=== PATIENT | male | born 1935 | race Hispanic/Latino ===

== ENCOUNTER 2021-10-09 11:47 | Inpatient (IN) | payer MEDICARE, OTHER ==
[~2021-10-09] VITALS: Ht 167.6 cm; Wt 81.6 kg
[2021-10-09] MEDS ORDERED: Morphine 2mg Syringe 2 MG/ML SYR IV PRN (13:15)
[2021-10-09] MEDS ORDERED: ONDANSETRON HCL INJ 2MG/ML 2ML 2 MG/ML VIAL IV PRN (13:15)
[2021-10-09] MEDS ORDERED: ONDANSETRON HCL INJ 2MG/ML 2ML 2 MG/ML VIAL IV STA (13:28)
[2021-10-09] MEDS ORDERED: Morphine 2mg Syringe 2 MG/ML SYR IV ONE (13:30)
[2021-10-09] MEDS ORDERED: Morphine 4mg Syringe 4 MG/ML INJ ONE (13:42)
[2021-10-09 15:33] VITALS: BP 170/94
[2021-10-09 15:40] VITALS: BP 170/94
[2021-10-09] MEDS ORDERED: LISINOPRIL10 MG PO (16:58)
[2021-10-09] MEDS ORDERED: VITAMIN B122500 MCG PO (16:58)
[2021-10-09] MEDS ORDERED: VITAMIN D3 COM1 EACH PO (16:58)
[2021-10-09 19:41] LABS: BASOPHILS % 0.3 % (0.0-1.0); EOSINOPHILS # (AUTO) 0.1 (0.0-0.4); HEMATOCRIT 41.6 % (38.2-49.6); HEMOGLOBIN 13.7 g/dL (14.0-18.0); LYMPHOCYTES % 11.5 % (18.0-39.1); MEAN CORPUSCULAR HEMOGLOBIN 28.7 pg (28-32); MEAN CORPUSCULAR HGB CONC 32.9 g/dL (31-35); MONOCYTES # (AUTO) 0.8 (0.2-0.8); MONOCYTES % 8.8 % (4.4-11.3); NEUTROPHILS # (AUTO) 6.8 (2.1-6.9); NEUTROPHILS % 78.1 % (38.7-80.0); PLATELET COUNT 163 x10e3/uL (140-360); RED BLOOD COUNT 4.78 x10e6/uL (4.3-5.7); RED CELL DISTRIBUTION WIDTH 13.2 % (11.7-14.4)
[2021-10-09 19:53] LABS: INR 1.07; PROTHROMBIN TIME 14.7 seconds (11.9-14.5)
[2021-10-09 20:00] VITALS: BP 188/77
[2021-10-09] MEDS ORDERED: METOPROLOL TARTRATE 25 MG TAB PO PRN (21:45)
[2021-10-09] MEDS ORDERED: METOPROLOL TARTRATE 25 MG TAB PO ONE (22:00)
[2021-10-10] VITALS (10 sets, daily range): BP systolic 149–201; BP diastolic 70–93
[2021-10-10] MEDS: SODIUM CHLORIDE 0.9% 1000ML 1,000 ML IV SCH ×2 (00:07→10:00)
[2021-10-10] MEDS ORDERED: METOPROLOL TARTRATE INJ 1 MG/ML VIAL IV PRN (00:45)
[2021-10-10] MEDS ORDERED: LABETALOL HCL 5 MG/ML 20ML VIAL IV ONE (00:45)
[2021-10-10] MEDS ORDERED: METOPROLOL TARTRATE INJ 1 MG/ML VIAL IV ONE (00:45)
[2021-10-10] MEDS ORDERED: LABETALOL HCL 5 MG/ML 20ML VIAL IV PRN (00:45)
[2021-10-10] MEDS ORDERED: METOPROLOL TARTRATE 50 MG TAB PO SCH (07:45)
[2021-10-10 08:28] LABS: CHOL/HDL RATIO 4.6 (3.9-4.7)
[2021-10-10] MEDS: MV MN PO SCH (09:00)
[2021-10-10] MEDS: IRON PO SCH (09:00)
[2021-10-10] MEDS: FOLIC ACID PO SCH (09:00)
[2021-10-10] MEDS ORDERED: CYANOCOBALAMIN PO SCH (09:00)
[2021-10-10] MEDS: OYST-CAL-D 500MG TABLET PO SCH ×3 (09:00→21:13)
[2021-10-10] MEDS: LISINOPRIL 10 MG TAB PO SCH (09:00)
[2021-10-10] MEDS: HERB PO SCH (09:00)
[2021-10-10] MEDS ORDERED: ONDANSETRON HCL 4 MG ORAL DISINTEGRATING TAB PO PRN (09:30)
[2021-10-10] MEDS: HYDRALAZINE HCL 25 MG TAB PO SCH ×3 (10:00→21:13)
[2021-10-10] MEDS ORDERED: ATROPINE SULFATE 0.1 MG/ML 10ML SYR IV PRN (10:00)
[2021-10-10] MEDS ORDERED: CYANOCOBALAMIN 1,000 MCG TAB PO SCH (12:00)
[2021-10-10 14:01] LABS: CLARITY,URINE CLEAR (CLEAR); COLOR,URINE YELLOW (YELLOW); KETONES,URINE NEGATIVE (NEGATIVE); LEUKOCYTE ESTERASE ,URINE NEGATIVE (NEGATIVE); NITRITE,URINE NEGATIVE (NEGATIVE); PROTEIN,URINE DIPSTICK NEGATIVE (NEGATIVE); URINE UROBILINOGEN 0.2 mg/dL (0.2 - 1)
[2021-10-10 14:17] LABS: BACTERIA,URINE FEW /HPF; RBC,URINE 0-5 /HPF (0-5)
[2021-10-10] MEDS: CYANOCOBALAMIN 1,000 MCG TAB PO SCH (21:13)
[2021-10-11] VITALS (7 sets, daily range): BP systolic 133–181; BP diastolic 69–96
[2021-10-11] MEDS: SODIUM CHLORIDE 0.9% 1000ML 1,000 ML IV SCH ×5 (00:03→21:15)
[2021-10-11 05:36] LABS: BASOPHILS % 0.3 % (0.0-1.0); EOSINOPHILS # (AUTO) 0.1 (0.0-0.4); HEMATOCRIT 40.9 % (38.2-49.6); HEMOGLOBIN 13.2 g/dL (14.0-18.0); LYMPHOCYTES % 7.9 % (18.0-39.1); MEAN CORPUSCULAR HEMOGLOBIN 28.2 pg (28-32); MEAN CORPUSCULAR HGB CONC 32.3 g/dL (31-35); MEAN CORPUSCULAR VOLUME 87.4 fL (81-99); MONOCYTES # (AUTO) 0.9 (0.2-0.8); MONOCYTES % 7.3 % (4.4-11.3); NEUTROPHILS # (AUTO) 10.7 (2.1-6.9); PLATELET COUNT 158 x10e3/uL (140-360); RED BLOOD COUNT 4.68 x10e6/uL (4.3-5.7); RED CELL DISTRIBUTION WIDTH 13.3 % (11.7-14.4)
[2021-10-11] MEDS: FOLIC ACID PO SCH (09:00)
[2021-10-11] MEDS: HYDRALAZINE HCL 25 MG TAB PO SCH ×3 (09:00→21:15)
[2021-10-11] MEDS: HERB PO SCH (09:00)
[2021-10-11] MEDS: LISINOPRIL 10 MG TAB PO SCH (09:00)
[2021-10-11] MEDS: MV MN PO SCH (09:00)
[2021-10-11] MEDS: OYST-CAL-D 500MG TABLET PO SCH ×3 (09:00→21:15)
[2021-10-11] MEDS: IRON PO SCH (09:00)
[2021-10-11] MEDS ORDERED: SODIUM CHLORIDE 0.9% 50ML 50 ML ONE (09:02)
[2021-10-11] MEDS ORDERED: HYDROMORPHONE 0.2MG/ML-SOD CHL 30ML PCA SYRINGE IV PRN (10:30)
[2021-10-11] MEDS ORDERED: ACETAMINOPHEN 1000 MG/100 ML IV PRN (10:30)
[2021-10-11] MEDS ORDERED: NALOXONE HCL INJ 0.4 MG/ML AMP IV PRN (10:30)
[2021-10-11] MEDS ORDERED: ONDANSETRON HCL INJ 2MG/ML 2ML 2 MG/ML VIAL IV PRN (10:30)
[2021-10-11] MEDS ORDERED: HYDROMORPHONE 0.2MG/ML-SOD CHL 30ML PCA SYRINGE IV ONE (10:50)
[2021-10-11 12:24] LABS: INR 1.18; PROTHROMBIN TIME 15.8 seconds (11.9-14.5)
[2021-10-11] MEDS ORDERED: SEVOFLURANE INHAL SOLN 250 ML PEN BTL ONE (12:42)
[2021-10-11] MEDS ORDERED: ACETAMINOPHEN 1000 MG/100 ML IV ONE (12:42)
[2021-10-11] MEDS ORDERED: LIDOCAINE HCL 2% LOCAL INJ 5 ML SDV VIAL INJ ONE (12:42)
[2021-10-11] MEDS ORDERED: ONDANSETRON HCL INJ 2MG/ML 2ML 2 MG/ML VIAL ONE (12:42)
[2021-10-11] MEDS ORDERED: PROPOFOL IV EMULSION 10 MG/ML 20 ML VIAL ONE (12:42)
[2021-10-11] MEDS ORDERED: POVIDONE IODINE 0.05% 0.05 % ML PO ONE (12:42)
[2021-10-11] MEDS ORDERED: FENTANYL CITRATE/PF 100MCG/2 ML INJ ONE (12:51)
[2021-10-11] MEDS ORDERED: Morphine 10mg syringe 10 MG/ML INJ ONE (12:51)
[2021-10-11] MEDS: Cefazolin 1 GM in SODIUM CHLORIDE 0.9% 50ML 50 ML IV SCH (16:35)
[2021-10-11] MEDS: CYANOCOBALAMIN 1,000 MCG TAB PO SCH (21:15)
[2021-10-11] MEDS ORDERED: DEXTROSE 50% SYRINGE 50 ML IV PRN (21:45)
[2021-10-11] MEDS: INSULIN LISPRO 100 UNIT/1 ML 3ML VIAL SQ SCH (22:02)
[2021-10-12] MEDS: Cefazolin 1 GM in SODIUM CHLORIDE 0.9% 50ML 50 ML IV SCH ×2 (00:37→08:51)
[2021-10-12 04:00] VITALS: BP 130/72
[2021-10-12] MEDS: SODIUM CHLORIDE 0.9% 1000ML 1,000 ML IV SCH ×4 (05:01→16:30)
[2021-10-12 05:16] LABS: HEMATOCRIT 37.3 % (38.2-49.6); HEMOGLOBIN 12.1 g/dL (14.0-18.0)
[2021-10-12] MEDS ORDERED: HYDRALAZINE HCL25 MG PO (07:01)
[2021-10-12] MEDS ORDERED: XARELTO10 MG PO (07:01)
[2021-10-12] MEDS ORDERED: ACETAMINOPHEN650 M1 PO (07:02)
[2021-10-12 08:00] VITALS: BP 145/84
[2021-10-12] MEDS: RIVAROXABAN 10 MG TABLET PO SCH ×2 (08:49→16:01)
[2021-10-12] MEDS: HYDRALAZINE HCL 25 MG TAB PO SCH ×2 (08:52→15:39)
[2021-10-12] MEDS: FOLIC ACID PO SCH (08:53)
[2021-10-12] MEDS: LISINOPRIL 10 MG TAB PO SCH (08:53)
[2021-10-12] MEDS: OYST-CAL-D 500MG TABLET PO SCH ×2 (08:53→15:40)
[2021-10-12] MEDS: MV MN PO SCH (08:53)
[2021-10-12] MEDS: IRON PO SCH (08:53)
[2021-10-12] MEDS: HERB PO SCH (08:53)
[2021-10-12] MEDS ORDERED: ACETAMINOPHEN/CODEINE 300MG - 30MG TAB PO PRN (09:15)
[2021-10-12] MEDS: INSULIN LISPRO 100 UNIT/1 ML 3ML VIAL SQ SCH ×3 (09:26→16:44)
[2021-10-12 12:00] VITALS: BP 128/69
[2021-10-12 15:00] VITALS: BP_SYST 128; BP_SYST 141; BP_DIAS 69; BP_DIAS 70
== END 2021-10-12 18:21 | DRG 481 ==
LOC: FSED 12:08 → ERHOLD 13:21 → MED/SURG 15:33
PROVIDERS: ADMIT Internal Medicine; ATTEND Internal Medicine
PROC: 0QS634Z Reposition Right Upper Femur with Internal Fixation Device, Percutaneous Approach (ICD-10-PCS; principal; 2021-10-11 08:00)
DX: S72.141A Displaced intertrochanteric fracture of right femur, initial encounter for closed fracture (principal); I16.1 Hypertensive emergency; I10 Essential (primary) hypertension; Z20.822 Contact with and (suspected) exposure to COVID-19; I44.1 Atrioventricular block, second degree; W01.0XXA Fall on same level from slipping, tripping and stumbling without subsequent striking against object, initial encounter; Y93.9 Activity, unspecified; E78.5 Hyperlipidemia, unspecified; E11.65 Type 2 diabetes mellitus with hyperglycemia; R94.31 Abnormal electrocardiogram [ECG] [EKG]; Z79.4 Long term (current) use of insulin
CPT/HCPCS: 36415; 71045; 72170; 76000; 80053; 80061; 81001; 82948; 83036; 85014; 85018; 85025; 85610; 86850; 86900; 93005; 93306; 94799; 97139; 99283; C1713; J0690; J2001; J2270; J2405; J3010; J7030; J7050; U0002

== ENCOUNTER 2022-01-27 20:41 | Inpatient (IN) | payer MEDICARE ==
[~2022-01-27] VITALS: Ht 167.6 cm; Wt 81.6 kg
[~2022-01-27 20:41] MED LIST: ACETAMINOPHEN650 M1 PO; HYDRALAZINE HCL25 MG PO; LISINOPRIL10 MG PO; VITAMIN B122500 MCG PO; VITAMIN D3 COM1 EACH PO; XARELTO10 MG PO
[2022-01-27] MEDS ORDERED: ACETAMINOPHEN 325 MG TAB PO ONE (21:00)
[2022-01-27 21:10] LABS: BASOPHILS % 0.3 % (0.0-1.0); EOSINOPHILS % 0.2 % (0.0-6.0); HEMATOCRIT 39.9 % (38.2-49.6); HEMOGLOBIN 13.1 g/dL (14.0-18.0); LYMPHOCYTES # (AUTO) 0.8 (1.0-3.2); LYMPHOCYTES % 5.2 % (18.0-39.1); MEAN CORPUSCULAR HEMOGLOBIN 29.6 pg (28-32); MEAN CORPUSCULAR HGB CONC 32.8 g/dL (31-35); MEAN CORPUSCULAR VOLUME 90.3 fL (81-99); MONOCYTES # (AUTO) 1.1 (0.2-0.8); MONOCYTES % 7.3 % (4.4-11.3); NEUTROPHILS # (AUTO) 12.8 (2.1-6.9); NEUTROPHILS % 86.4 % (38.7-80.0); PLATELET COUNT 232 x10e3/uL (140-360); RED BLOOD COUNT 4.42 x10e6/uL (4.3-5.7); RED CELL DISTRIBUTION WIDTH 13.7 % (11.7-14.4)
[2022-01-27] MEDS ORDERED: ACETAMINOPHEN 325 MG TAB ONE (21:12)
[2022-01-27 21:16] LABS: CLARITY,URINE CLOUDY (CLEAR); COLOR,URINE YELLOW (YELLOW)
[2022-01-27 21:17] LABS: KETONES,URINE NEGATIVE (NEGATIVE); LEUKOCYTE ESTERASE ,URINE SMALL (NEGATIVE); NITRITE,URINE POSITIVE (NEGATIVE); PROTEIN,URINE DIPSTICK 2+ (NEGATIVE)
[2022-01-27 21:21] LABS: ALBUMIN 3.2 g/dL (3.5-5.0); ALBUMIN/GLOBULIN RATIO 0.7 (0.8-2.0); CALCIUM 9.2 mg/dL (8.4-10.2); CREATININE, SERUM 1.41 mg/dL (0.72-1.25)
[2022-01-27 21:28] LABS: CREATINE KINASE MB 1.4 ng/mL (0-5.0)
[2022-01-27 21:30] LABS: BACTERIA,URINE MANY /HPF; EPITHELIAL CELLS,URINE FEW /LPF; WBC,URINE (MAN) >50 /HPF (0-5)
[2022-01-27] MEDS ORDERED: SODIUM CHLORIDE 0.9% 1000ML 1,000 ML ONE (22:49)
[2022-01-27] MEDS ORDERED: ONDANSETRON HCL INJ 2MG/ML 2ML 2 MG/ML VIAL IV PRN (23:00)
[2022-01-27] MEDS ORDERED: DEXTROSE 50% SYRINGE 50 ML IV PRN (23:00)
[2022-01-27] MEDS ORDERED: SODIUM CHLORIDE 0.9% 1000ML 1,000 ML IV SCH (23:30)
[2022-01-28] MEDS ORDERED: SODIUM CHLORIDE 0.9% 1000ML 1,000 ML IV ONE
[2022-01-28 04:04] LABS: BASOPHILS % 0.3 % (0.0-1.0); EOSINOPHILS % 0.1 % (0.0-6.0); HEMOGLOBIN 11.3 g/dL (14.0-18.0); LYMPHOCYTES # (AUTO) 0.8 (1.0-3.2); LYMPHOCYTES % 7.1 % (18.0-39.1); MEAN CORPUSCULAR HEMOGLOBIN 29.4 pg (28-32); MEAN CORPUSCULAR HGB CONC 32.3 g/dL (31-35); MEAN CORPUSCULAR VOLUME 91.1 fL (81-99); MONOCYTES # (AUTO) 0.7 (0.2-0.8); MONOCYTES % 5.8 % (4.4-11.3); NEUTROPHILS # (AUTO) 9.8 (2.1-6.9); NEUTROPHILS % 86.2 % (38.7-80.0); RED BLOOD COUNT 3.84 x10e6/uL (4.3-5.7); RED CELL DISTRIBUTION WIDTH 13.8 % (11.7-14.4)
[2022-01-28 04:10] LABS: PLATELET COUNT 169 x10e3/uL (140-360)
[2022-01-28 04:22] LABS: ALBUMIN 2.5 g/dL (3.5-5.0); ALBUMIN/GLOBULIN RATIO 0.6 (0.8-2.0); ANION GAP 15.5 mmol/L (8-16); CALCIUM 8.1 mg/dL (8.4-10.2); CREATININE, SERUM 1.15 mg/dL (0.72-1.25); POTASSIUM 3.5 mmol/L (3.5-5.1)
[2022-01-28] MEDS: INSULIN REGULAR, HUMAN 100 UNIT/1 ML SQ SCH ×4 (07:14→21:00)
[2022-01-28] MEDS ORDERED: POTASSIUM CHLORIDE 10MEQ EA PO ONE (11:00)
[2022-01-28] MEDS: ENOXAPARIN SOD INJ 60 MG/0.6 ML SYR SC SCH ×2 (12:04→21:16)
[2022-01-28] MEDS: HYDRALAZINE HCL 25 MG TAB PO SCH ×2 (15:20→21:16)
[2022-01-28] MEDS ORDERED: ENOXAPARIN SOD INJ 40 MG/0.4 ML SYR SC SCH (17:00)
[2022-01-28] MEDS: ACETAMINOPHEN 325 MG TAB PO PRN (17:37)
[2022-01-28 20:00] VITALS: BP 118/60
[2022-01-28] MEDS ORDERED: SODIUM CHLORIDE 0.9% 250ML 250 ML ONE (20:56)
[2022-01-28 23:54] VITALS: BP 149/66
[2022-01-29] MEDS: ACETAMINOPHEN 325 MG TAB PO PRN (01:31)
[2022-01-29 04:00] VITALS: BP 151/57
[2022-01-29 05:58] LABS: BASOPHILS % 0.3 % (0.0-1.0); EOSINOPHILS % 0.3 % (0.0-6.0); HEMOGLOBIN 11.3 g/dL (14.0-18.0); LYMPHOCYTES # (AUTO) 0.8 (1.0-3.2); LYMPHOCYTES % 6.6 % (18.0-39.1); MEAN CORPUSCULAR HEMOGLOBIN 28.9 pg (28-32); MEAN CORPUSCULAR HGB CONC 31.4 g/dL (31-35); MEAN CORPUSCULAR VOLUME 92.1 fL (81-99); MONOCYTES # (AUTO) 0.9 (0.2-0.8); MONOCYTES % 7.7 % (4.4-11.3); NEUTROPHILS # (AUTO) 10.1 (2.1-6.9); NEUTROPHILS % 84.7 % (38.7-80.0); PLATELET COUNT 187 x10e3/uL (140-360); RED BLOOD COUNT 3.91 x10e6/uL (4.3-5.7); RED CELL DISTRIBUTION WIDTH 13.9 % (11.7-14.4)
[2022-01-29 06:38] LABS: ALBUMIN 2.2 g/dL (3.5-5.0); ALBUMIN/GLOBULIN RATIO 0.6 (0.8-2.0); ANION GAP 14.1 mmol/L (8-16); CALCIUM 8.1 mg/dL (8.4-10.2); CREATININE, SERUM 1.04 mg/dL (0.72-1.25); MAGNESIUM 1.9 MG/DL (1.3-2.1); PHOSPHORUS 2.5 MG/DL (2.3-4.7); POTASSIUM 4.1 mmol/L (3.5-5.1)
[2022-01-29 06:41] LABS: THYROID STIMULATING HORMONE 4.197 uIU/mL (0.350-4.940)
[2022-01-29 08:09] VITALS: BP 138/83
[2022-01-29 09:10] VITALS: BP 138/83
[2022-01-29] MEDS: INSULIN REGULAR, HUMAN 100 UNIT/1 ML SQ SCH ×4 (09:16→21:00)
[2022-01-29] MEDS: ENOXAPARIN SOD INJ 60 MG/0.6 ML SYR SC SCH (09:17)
[2022-01-29] MEDS: HYDRALAZINE HCL 25 MG TAB PO SCH ×3 (09:17→22:04)
[2022-01-29] MEDS ORDERED: ONDANSETRON HCL 4 MG ORAL DISINTEGRATING TAB PO PRN (12:00)
[2022-01-29 12:01] VITALS: BP 130/59
[2022-01-29 16:03] VITALS: BP 130/47
[2022-01-29 20:00] VITALS: BP 150/74
[2022-01-30] VITALS (7 sets, daily range): BP systolic 136–177; BP diastolic 75–95
[2022-01-30] MEDS: INSULIN REGULAR, HUMAN 100 UNIT/1 ML SQ SCH ×4 (07:30→21:46)
[2022-01-30] MEDS: HYDRALAZINE HCL 25 MG TAB PO SCH ×3 (08:22→22:32)
[2022-01-31 01:26] VITALS: BP 143/83
[2022-01-31 05:06] VITALS: BP 146/76
[2022-01-31 06:21] LABS: BASOPHILS % 0.2 % (0.0-1.0); EOSINOPHILS # (AUTO) 0.2 (0.0-0.4); EOSINOPHILS % 2.2 % (0.0-6.0); HEMATOCRIT 34.5 % (38.2-49.6); LYMPHOCYTES # (AUTO) 1.2 (1.0-3.2); LYMPHOCYTES % 14.2 % (18.0-39.1); MEAN CORPUSCULAR HEMOGLOBIN 28.9 pg (28-32); MEAN CORPUSCULAR HGB CONC 31.9 g/dL (31-35); MEAN CORPUSCULAR VOLUME 90.8 fL (81-99); MONOCYTES # (AUTO) 0.9 (0.2-0.8); MONOCYTES % 10.7 % (4.4-11.3); NEUTROPHILS # (AUTO) 6.2 (2.1-6.9); NEUTROPHILS % 72.4 % (38.7-80.0); PLATELET COUNT 211 x10e3/uL (140-360); RED CELL DISTRIBUTION WIDTH 13.9 % (11.7-14.4)
[2022-01-31 06:50] LABS: ANION GAP 16.5 mmol/L (8-16); CALCIUM 7.6 mg/dL (8.4-10.2); CREATININE, SERUM 0.89 mg/dL (0.72-1.25); POTASSIUM 3.5 mmol/L (3.5-5.1)
[2022-01-31] MEDS: INSULIN REGULAR, HUMAN 100 UNIT/1 ML SQ SCH ×4 (07:30→21:00)
[2022-01-31 07:54] VITALS: BP 136/82
[2022-01-31] MEDS: HYDRALAZINE HCL 25 MG TAB PO SCH ×3 (09:00→21:51)
[2022-01-31] MEDS ORDERED: BUPIVACAINE HC 0.75% PF 10ML VIAL INJ ONE (10:38)
[2022-01-31] MEDS ORDERED: Morphine 4mg INJECTION 4 MG/ML INJ IV PRN (13:30)
[2022-01-31] MEDS: LACTATED RINGER'S 1,000 ML INJ SCH ×2 (16:24→23:40)
[2022-01-31 17:22] VITALS: BP 136/73
[2022-01-31] MEDS ORDERED: POVIDONE IODINE 0.05% 0.05 % ML PO ONE (17:27)
[2022-01-31] MEDS ORDERED: DEXAMETHASONE SOD PHOS INJ 4 MG/ML SDV ONE (17:27)
[2022-01-31] MEDS ORDERED: ROCURONIUM BROMIDE 10 MG/ML 5ML VIAL IV ONE (17:27)
[2022-01-31] MEDS ORDERED: SEVOFLURANE INHAL SOLN 250 ML PEN BTL ONE (17:27)
[2022-01-31] MEDS ORDERED: NEOSTIGMINE 1 MG/ML 10ML VIAL ONE (17:27)
[2022-01-31] MEDS ORDERED: PHENYLEPHRINE HCL 1% 10 MG/ML VIAL ONE (17:27)
[2022-01-31] MEDS ORDERED: ONDANSETRON HCL INJ 2MG/ML 2ML 2 MG/ML VIAL ONE (17:27)
[2022-01-31] MEDS ORDERED: PROPOFOL IV EMULSION 10 MG/ML 20 ML VIAL ONE (17:27)
[2022-01-31] MEDS ORDERED: LIDOCAINE HCL 2% LOCAL INJ 5 ML SDV VIAL INJ ONE (17:27)
[2022-01-31] MEDS ORDERED: GLYCOPYRROLATE INJ 0.2 MG/ML VIAL ONE (17:27)
[2022-01-31] MEDS ORDERED: FENTANYL CITRATE/PF 100MCG/2 ML INJ ONE (18:00)
[2022-01-31] MEDS: ACETAMINOPHEN 325 MG TAB PO PRN (19:40)
[2022-01-31 20:00] VITALS: BP 133/73
[2022-01-31 21:00] VITALS: BP 133/73
[2022-02-01] VITALS (8 sets, daily range): BP systolic 136–162; BP diastolic 74–83
[2022-02-01] MEDS: INSULIN REGULAR, HUMAN 100 UNIT/1 ML SQ SCH ×4 (07:30→21:00)
[2022-02-01] MEDS: LACTATED RINGER'S 1,000 ML INJ SCH (08:57)
[2022-02-01] MEDS: HYDRALAZINE HCL 25 MG TAB PO SCH ×3 (08:57→21:32)
[2022-02-02] VITALS (8 sets, daily range): BP systolic 136–163; BP diastolic 69–86
[2022-02-02 06:34] LABS: BASOPHILS % 0.3 % (0.0-1.0); EOSINOPHILS # (AUTO) 0.1 (0.0-0.4); EOSINOPHILS % 1.2 % (0.0-6.0); HEMATOCRIT 36.7 % (38.2-49.6); HEMOGLOBIN 11.7 g/dL (14.0-18.0); LYMPHOCYTES # (AUTO) 1.2 (1.0-3.2); LYMPHOCYTES % 11.7 % (18.0-39.1); MEAN CORPUSCULAR HEMOGLOBIN 28.9 pg (28-32); MEAN CORPUSCULAR HGB CONC 31.9 g/dL (31-35); MEAN CORPUSCULAR VOLUME 90.6 fL (81-99); MONOCYTES # (AUTO) 0.9 (0.2-0.8); MONOCYTES % 8.8 % (4.4-11.3); NEUTROPHILS # (AUTO) 7.6 (2.1-6.9); NEUTROPHILS % 77.2 % (38.7-80.0); PLATELET COUNT 296 x10e3/uL (140-360); RED BLOOD COUNT 4.05 x10e6/uL (4.3-5.7); RED CELL DISTRIBUTION WIDTH 13.7 % (11.7-14.4)
[2022-02-02 06:59] LABS: ALBUMIN/GLOBULIN RATIO 0.5 (0.8-2.0); ANION GAP 11.7 mmol/L (8-16); CALCIUM 7.9 mg/dL (8.4-10.2); CREATININE, SERUM 0.8 mg/dL (0.72-1.25); POTASSIUM 3.7 mmol/L (3.5-5.1)
[2022-02-02] MEDS: INSULIN REGULAR, HUMAN 100 UNIT/1 ML SQ SCH ×4 (07:30→21:00)
[2022-02-02] MEDS: HYDRALAZINE HCL 25 MG TAB PO SCH ×3 (09:30→23:00)
[2022-02-02] MEDS: ACETAMINOPHEN 325 MG TAB PO PRN (18:00)
[2022-02-02] MEDS: ENOXAPARIN 30 MG/0.3 ML SYR SC SCH (21:55)
[2022-02-03] VITALS (8 sets, daily range): BP systolic 123–163; BP diastolic 57–87
[2022-02-03] MEDS: INSULIN REGULAR, HUMAN 100 UNIT/1 ML SQ SCH ×4 (07:30→21:00)
[2022-02-03] MEDS: HYDRALAZINE HCL 25 MG TAB PO SCH ×3 (09:11→21:15)
[2022-02-03] MEDS: ENOXAPARIN 30 MG/0.3 ML SYR SC SCH ×2 (09:12→21:16)
[2022-02-03] MEDS: ACETAMINOPHEN 325 MG TAB PO PRN (16:10)
[2022-02-04] VITALS (7 sets, daily range): BP systolic 128–162; BP diastolic 65–82
[2022-02-04] MEDS: INSULIN REGULAR, HUMAN 100 UNIT/1 ML SQ SCH ×4 (07:30→20:05)
[2022-02-04] MEDS: HYDRALAZINE HCL 25 MG TAB PO SCH (08:57)
[2022-02-04] MEDS: ENOXAPARIN 30 MG/0.3 ML SYR SC SCH (08:58)
[2022-02-04] MEDS ORDERED: BISACODYL 10 MG SUPP PR PRN (09:45)
[2022-02-04] MEDS ORDERED: HYDRALAZINE HCL 25 MG TAB PO PRN (09:45)
[2022-02-04] MEDS ORDERED: MAGNESIUM HYDROXIDE 30 ML UDC PO PRN (09:45)
[2022-02-04] MEDS ORDERED: HYDROCODONE/APAP 5MG-325MG TAB PO PRN (09:45)
[2022-02-04] MEDS: SENNA-S TABLET PO SCH ×2 (10:30→17:00)
[2022-02-04] MEDS ORDERED: NIFEDIPINE CR 30 MG TAB PO ONE (10:30)
[2022-02-04 10:37] LABS: BASOPHILS # (AUTO) 0.1 (0.0-0.1); BASOPHILS % 0.5 % (0.0-1.0); EOSINOPHILS # (AUTO) 0.3 (0.0-0.4); EOSINOPHILS % 2.6 % (0.0-6.0); HEMOGLOBIN 12.8 g/dL (14.0-18.0); LYMPHOCYTES # (AUTO) 1.8 (1.0-3.2); MEAN CORPUSCULAR HEMOGLOBIN 28.8 pg (28-32); MEAN CORPUSCULAR VOLUME 89.9 fL (81-99); MONOCYTES # (AUTO) 0.7 (0.2-0.8); MONOCYTES % 7.3 % (4.4-11.3); NEUTROPHILS # (AUTO) 6.9 (2.1-6.9); NEUTROPHILS % 70.9 % (38.7-80.0); PLATELET COUNT 479 x10e3/uL (140-360); RED BLOOD COUNT 4.45 x10e6/uL (4.3-5.7); RED CELL DISTRIBUTION WIDTH 13.6 % (11.7-14.4)
[2022-02-04 11:09] LABS: ANION GAP 12.7 mmol/L (8-16); CALCIUM 8.5 mg/dL (8.4-10.2); CREATININE, SERUM 0.79 mg/dL (0.72-1.25); POTASSIUM 3.7 mmol/L (3.5-5.1)
[2022-02-04] MEDS: APIXABAN 5 MG TABLET PO SCH (17:00)
[2022-02-04] MEDS: METOPROLOL TARTRATE 50 MG TAB PO SCH (17:00)
[2022-02-05] VITALS (8 sets, daily range): BP systolic 115–140; BP diastolic 60–78
[2022-02-05] MEDS: NIFEDIPINE CR 30 MG TAB PO SCH (05:59)
[2022-02-05] MEDS: INSULIN REGULAR, HUMAN 100 UNIT/1 ML SQ SCH ×4 (07:30→20:15)
[2022-02-05] MEDS: SENNA-S TABLET PO SCH ×2 (10:16→17:02)
[2022-02-05] MEDS: APIXABAN 5 MG TABLET PO SCH ×2 (10:16→17:02)
[2022-02-05] MEDS: METOPROLOL TARTRATE 50 MG TAB PO SCH ×2 (10:16→17:02)
[2022-02-06] VITALS: BP 148/59
[2022-02-06 04:00] VITALS: BP 140/59
[2022-02-06] MEDS: NIFEDIPINE CR 30 MG TAB PO SCH (05:07)
[2022-02-06] MEDS: INSULIN REGULAR, HUMAN 100 UNIT/1 ML SQ SCH (07:30)
[2022-02-06 08:01] VITALS: BP 155/57
[2022-02-06 08:04] VITALS: BP 155/57
[2022-02-06] MEDS: SENNA-S TABLET PO SCH (11:16)
[2022-02-06] MEDS: APIXABAN 5 MG TABLET PO SCH (11:17)
[2022-02-06] MEDS: METOPROLOL TARTRATE 50 MG TAB PO SCH (11:17)
[2022-02-06 11:50] VITALS: BP 155/71
== END 2022-02-06 13:38 | disposition home or self-care (01) | DRG 854 ==
LOC: ER 20:50 → ERHOLD 22:51 → MED/SURG2 01-28 19:56
PROVIDERS: ADMIT Internal Medicine; ATTEND Internal Medicine
PROC: 0FT44ZZ Resection of Gallbladder, Percutaneous Endoscopic Approach (ICD-10-PCS; principal; 2022-01-31 11:38)
DX: A41.59 Other Gram-negative sepsis (principal); N39.0 Urinary tract infection, site not specified; K81.0 Acute cholecystitis; N17.9 Acute kidney failure, unspecified; I82.4Z1 Acute embolism and thrombosis of unspecified deep veins of right distal lower extremity; R65.20 Severe sepsis without septic shock; E11.9 Type 2 diabetes mellitus without complications; I44.1 Atrioventricular block, second degree; I10 Essential (primary) hypertension; I48.0 Paroxysmal atrial fibrillation; Z98.890 Other specified postprocedural states; N40.0 Benign prostatic hyperplasia without lower urinary tract symptoms; Z20.822 Contact with and (suspected) exposure to COVID-19; R33.9 Retention of urine, unspecified; E83.51 Hypocalcemia; R31.29 Other microscopic hematuria; B96.1 Klebsiella pneumoniae [K. pneumoniae] as the cause of diseases classified elsewhere; R41.0 Disorientation, unspecified; E78.5 Hyperlipidemia, unspecified; D64.9 Anemia, unspecified; N28.1 Cyst of kidney, acquired
CPT/HCPCS: 36415; 51700; 71045; 74176; 80048; 80053; 81001; 82550; 82553; 82607; 82746; 82948; 83036; 83605; 83735; 84100; 84443; 84484; 85025; 87040; 87071; 87086; 87186; 87205; 88304; 93005; 93306; 93970; 94799; 97139; 99251; 99284; C1713; J0692; J0694; J0696; J1100; J1650; J1817; J2001; J2370; J2405; J2710; J3010; J7030; J7050; J7121

== ENCOUNTER 2022-02-13 11:06 | Emergency (ER) | payer MEDICARE ==
[~2022-02-13] VITALS: Ht 167.6 cm; Wt 81.6 kg
[2022-02-13] MEDS ORDERED: FUROSEMIDE INJ 10 MG/ML 2 ML VIAL IV ONE (11:30)
[2022-02-13 11:46] LABS: BASOPHILS # (AUTO) 0.1 (0.0-0.1); BASOPHILS % 0.4 % (0.0-1.0); EOSINOPHILS # (AUTO) 0.1 (0.0-0.4); EOSINOPHILS % 1.1 % (0.0-6.0); HEMATOCRIT 37.6 % (38.2-49.6); HEMOGLOBIN 11.8 g/dL (14.0-18.0); LYMPHOCYTES # (AUTO) 1.4 (1.0-3.2); LYMPHOCYTES % 12.2 % (18.0-39.1); MEAN CORPUSCULAR HEMOGLOBIN 28.6 pg (28-32); MEAN CORPUSCULAR HGB CONC 31.4 g/dL (31-35); MONOCYTES # (AUTO) 0.6 (0.2-0.8); MONOCYTES % 5.5 % (4.4-11.3); NEUTROPHILS # (AUTO) 9.1 (2.1-6.9); NEUTROPHILS % 80.4 % (38.7-80.0); PLATELET COUNT 382 x10e3/uL (140-360); RED BLOOD COUNT 4.13 x10e6/uL (4.3-5.7); RED CELL DISTRIBUTION WIDTH 13.1 % (11.7-14.4)
[2022-02-13 12:07] LABS: ALBUMIN 3.1 g/dL (3.5-5.0); ALBUMIN/GLOBULIN RATIO 0.8 (0.8-2.0); ANION GAP 15.4 mmol/L (8-16); CREATININE, SERUM 1.41 mg/dL (0.72-1.25); POTASSIUM 4.4 mmol/L (3.5-5.1)
[2022-02-13] MEDS ORDERED: ONDANSETRON ODT4 MG PO (12:37)
[2022-02-13] MEDS ORDERED: PROTONIX20 MG PO (12:37)
[2022-02-13 12:45] LABS: CLARITY,URINE CLOUDY (CLEAR); COLOR,URINE AMBER (YELLOW); LEUKOCYTE ESTERASE ,URINE TRACE (NEGATIVE)
[2022-02-13 12:46] LABS: KETONES,URINE NEGATIVE (NEGATIVE); NITRITE,URINE NEGATIVE (NEGATIVE); PROTEIN,URINE DIPSTICK 1+ (NEGATIVE); URINE UROBILINOGEN 0.2 mg/dL (0.2 - 1)
[2022-02-13 13:36] LABS: RBC,URINE >50 /HPF (0-5); WBC,URINE (MAN) 0-5 /HPF (0-5)
[2022-02-13 13:37] LABS: AMORPHOUS SEDIMENT,URINE MODERATE (FEW); BACTERIA,URINE MODERATE /HPF; EPITHELIAL CELLS,URINE FEW /LPF
[2022-02-13] MEDS ORDERED: LASIX20 MG PO ×2 (13:44→13:47)
== END 2022-02-13 14:07 | disposition home or self-care (01) ==
LOC: ER 11:14
DX: R33.9 Retention of urine, unspecified (principal); I50.9 Heart failure, unspecified; R91.8 Other nonspecific abnormal finding of lung field; E11.65 Type 2 diabetes mellitus with hyperglycemia; I10 Essential (primary) hypertension; I48.91 Unspecified atrial fibrillation; R94.31 Abnormal electrocardiogram [ECG] [EKG]
CPT/HCPCS: 36415; 71045; 80053; 81001; 83880; 85025; 87086; 93005; 99284; J1940